=== PATIENT | female | born 1965 | race Caucasian/White ===

== ENCOUNTER 2016-12-15 23:56 | Emergency (ER) | payer MEDICARE, OTHER ==
[~2016-12-15] VITALS: Ht 167.6 cm; Wt 73.9 kg
--- NOTE | 2016-12-16 00:11 | PHYS DOC ---
Adult General Chief Complaint Chief Complaint: ABDOMINAL PAIN HPI HPI Patient is a 51 year old female who presents with abdominal pain. She states been on for last several days his epigastric region and now has radiated to the right upper quadrant. She denies any nausea or vomiting but states the pain gets so severe that she decided to come the emergency department. She has had her gallbladder removed in the past. She denies shortness of breath or chest pain. She does not have a family history of coronary disease and she's never had a heart attack or a stress test in the past. She states nothing makes the pain better or worse it comes on then resolves by itself. She denies any other abdominal surgeries other than her cholecystectomy. She states the pain is in her right upper and right lower quadrant currently. Review of Systems Review of Systems Constitutional: Denies fever or chills [] Eyes: Denies change in visual acuity, redness, or eye pain [] HENT: Denies nasal congestion or sore throat [] Respiratory: Denies cough or shortness of breath [] Cardiovascular: No additional information not addressed in HPI [] GI: Denies nausea, vomiting, bloody stools or diarrhea, positive for abdominal pain : Denies dysuria or hematuria [] Musculoskeletal: Denies back pain or joint pain [] Integument: Denies rash or skin lesions [] Neurologic: Denies headache, focal weakness or sensory changes [] Endocrine: Denies polyuria or polydipsia [] Current Medications Current Medications Current Medications Medications (Trade) Dose Ordered Sig/Charu Start Time Stop Time Status Last Admin Dose Admin Info (Do NOT chart on this entry -- for MONITORING) 1 each PRN DAILY PRN 12/16/16 03:30 12/18/16 03:29 Iohexol (Omnipaque 300 Mg/ml) 75 ml 1X ONCE 12/16/16 03:15 12/16/16 03:19 DC 12/16/16 03:20 75 ML Morphine Sulfate 2 mg PRN Q15MIN PRN 12/16/16 00:30 12/17/16 00:29 Allergies Allergies Allergies Uncoded Allergies Type Severity Reaction Last Updated Verified NSAIDS Adverse Reaction Unknown 12/16/16 Physical Exam Physical Exam Constitutional: Well developed, well nourished, no acute distress, non-toxic appearance. [] HENT: Normocephalic, atraumatic, bilateral external ears normal, oropharynx moist, no oral exudates, nose normal. [] Eyes: PERRLA, EOMI, conjunctiva normal, no discharge. [] Neck: Normal range of motion, no tenderness, supple, no stridor. [] Cardiovascular:Heart rate regular rhythm, no murmur [] Lungs & Thorax: Bilateral breath sounds clear to auscultation [] Abdomen: Bowel sounds normal, soft, tender to palpation the right upper and lower quadrant, no rebound or guarding no masses, no pulsatile masses. [] Skin: Warm, dry, no erythema, no rash. [] Back: No tenderness, no CVA tenderness. [] Extremities: No tenderness, no cyanosis, no clubbing, ROM intact, no edema. [] Neurologic: Alert and oriented X 3, normal motor function, normal sensory function, no focal deficits noted. [] Psychologic: Affect normal, judgement normal, mood normal. [] Current Patient Data Vital Signs Vital Signs Date Time Temp Pulse Resp B/P (MAP) Pulse Ox O2 Delivery O2 Flow Rate FiO2 12/15/16 23:57 97.2 79 17 166/93 (117) 97 Room Air 97.2 Lab Values Laboratory Tests Test 12/16/16 00:04 12/16/16 00:45 12/16/16 04:20 Urine Collection Type Unknown Urine Color Yellow Urine Clarity Clear Urine pH 5.5 Urine Specific [place] 1.010 Urine Protein Negative mg/dL (NEG-TRACE) Urine Glucose (UA) Negative mg/dL (NEG) Urine Ketones (Stick) Negative mg/dL (NEG) Urine Blood Negative (NEG) Urine Nitrite Positive (NEG) Urine Bilirubin Negative (NEG) Urine Urobilinogen Dipstick 0.2 mg/dL (0.2 mg/dL) Urine Leukocyte Esterase Small (NEG) Urine RBC Occ /HPF (0-2) Urine WBC 5-10 /HPF (0-4) Urine Squamous Epithelial Cells Occ /LPF Urine Bacteria Many /HPF (0-FEW) Urine Mucus Slight /LPF Urine Opiates Screen Neg (NEG) Urine Methadone Screen Neg (NEG) Urine Barbiturates Neg (NEG) Urine Phencyclidine Screen Neg (NEG) Urine Amphetamine/Methamphetamine Neg (NEG) Urine Benzodiazepines Screen Pos (NEG) Urine Cocaine Screen Neg (NEG) Urine Cannabinoids Screen Neg (NEG) Urine Ethyl Alcohol Pos (NEG) White Blood Count 4.6 x10^3/uL (4.0-11.0) Red Blood Count 3.83 x10^6/uL (3.50-5.40) Hemoglobin 11.7 g/dL (12.0-15.5) L Hematocrit 34.8 % (36.0-47.0) L Mean Corpuscular Volume 91 fL (79-100) Mean Corpuscular Hemoglobin 30 pg (25-35) Mean Corpuscular Hemoglobin Concent 34 g/dL (31-37) Red Cell Distribution Width 13.6 % (11.5-14.5) Platelet Count 144 x10^3/uL (140-400) Neutrophils (%) (Auto) 62 % (31-73) Lymphocytes (%) (Auto) 21 % (24-48) L Monocytes (%) (Auto) 11 % (0-9) H Eosinophils (%) (Auto) 6 % (0-3) H Basophils (%) (Auto) 0 % (0-3) Neutrophils # (Auto) 2.9 x10^3uL (1.8-7.7) Lymphocytes # (Auto) 0.9 x10^3/uL (1.0-4.8) L Monocytes # (Auto) 0.5 x10^3/uL (0.0-1.1) Eosinophils # (Auto) 0.3 x10^3/uL (0.0-0.7) Basophils # (Auto) 0.0 x10^3/uL (0.0-0.2) Prothrombin Time 13.9 SEC (11.7-14.0) Prothrombin Time INR 1.1 (0.8-1.1) Sodium Level 144 mmol/L (136-145) Potassium Level 3.9 mmol/L (3.5-5.1) Chloride Level 107 mmol/L (98-107) Carbon Dioxide Level 28 mmol/L (21-32) Anion Gap 9 (6-14) Blood Urea Nitrogen 10 mg/dL (7-20) Creatinine 0.5 mg/dL (0.6-1.0) L Estimated GFR (Cockcroft-Gault) 130.1 Glucose Level 95 mg/dL (70-99) Calcium Level 8.5 mg/dL (8.5-10.1) Magnesium Level 1.8 mg/dL (1.8-2.4) Total Bilirubin 0.4 mg/dL (0.2-1.0) Direct Bilirubin 0.1 mg/dL (0.0-0.2) Aspartate Amino Transferase (AST) 32 U/L (15-37) Alanine Aminotransferase (ALT) 43 U/L (14-59) Alkaline Phosphatase 145 U/L (46-116) H Creatine Kinase 34 U/L (26-192) 29 U/L (26-192) Creatine Kinase MB (Mass) 0.6 ng/mL (0.0-3.6) < 0.5 ng/mL (0.0-3.6) Creatine Kinase MB Relative Index 1.8 % (0-4) 1.7 % (0-4) Troponin I Quantitative < 0.017 ng/mL (0.000-0.055) < 0.017 ng/mL (0.000-0.055) SV-Waq-T-Type Natriuretic Peptide 132 pg/mL (0-124) H Total Protein 6.0 g/dL (6.4-8.2) L Albumin 3.2 g/dL (3.4-5.0) L Lipase 92 U/L (73-393) Thyroid Stimulating Hormone (TSH) 0.991 uIU/mL (0.358-3.74) Laboratory Tests 12/16/16 00:45 Laboratory Tests 12/16/16 00:45 EKG EKG EKG shows sinus rhythm [address] elevations or T-wave inversions, normal axis, QTC 420 ms, as interpreted by me. Radiology/Procedures Radiology/Procedures [facility] [address] [place] [address] IMAGING REPORT Signed PATIENT: ELPIDIO WANG ACCOUNT: [id number] : 1965 LOCATION: ER AGE: 51 SEX: F EXAM STATUS: REG ER ORD. PHYSICIAN: EDILBERTO SINGLETARY MD REASON: RUQ ABDOMEN pain PROCEDURE: CT ABD PELV W/ IV CONTRST ONLY CT scan of the abdomen and pelvis with contrast 12/16/2016 CLINICAL HISTORY: Right upper quadrant abdominal pain. TECHNIQUE: After the intravenous administration of 75 cc of Omnipaque 300, contiguous, 5 mm axial sections were obtained through the abdomen and pelvis. 75 cc of Omnipaque 300 were administered intravenously during this examination. One or more of the following individualized dose reduction techniques were utilized for this study: 1. Automated exposure control. 2. Adjustment of the mA and/or kV according to patient size. 3. Use of iterative reconstruction technique. FINDINGS: Images through the lung bases demonstrate minimal dependent subsegmental atelectasis bilaterally. The liver, pancreas, adrenal glands and kidneys are within normal limits. A 2.2 cm wedge-shaped area of decreased attenuation is seen involving the superior aspect of the spleen which likely represents an area of infarction. The spleen is mildly enlarged measuring 13 cm in length. Mild atherosclerotic calcification of the abdominal aorta is seen. The abdominal aorta tapers normally. Surgical changes are seen consistent with a gastric bypass procedure. Surgical clips are seen within the gallbladder fossa consistent with a cholecystectomy. No free fluid or free air is within the abdomen. There is no evidence of bowel obstruction. The appendix is not visualized. No inflammatory changes are seen surrounding the cecum. Images through the pelvis demonstrate the urinary bladder distended with urine. Calcifications are seen within the pelvis consistent with phleboliths. No free fluid is seen. Degenerative changes are seen involving the lower thoracic and mid and lower lumbar spine and both hips. Mild S-shaped curvature of the thoracolumbar spine is seen. IMPRESSION: No acute abnormality is seen. Electronically signed by: Ki Garvey MD (12/16/2016 3:55 AM) DICTATED and SIGNED BY: KI GARVEY MD DATE: 12/16/16 0350 CC: EDILBERTO SINGLETARY MD; NO PCP ~ Impressions: Abdominal pain Urinary tract infection Course & Med Decision Making Course & Med Decision Making Pertinent Labs and Imaging studies reviewed. (See chart for details) Labs do not show any acute abnormalities except for urinary tract infection, EKG and first and second troponins are also normal. CT abdomen and pelvis was within normal limits. We'll discharge with Cipro 500 mg twice a day for 3 days Welcome1 Patient's pain has resolved. She's being discharged home to follow-up with primary care physician and her GI doctor. Return precautions given, patient and boyfriend's agreeable to the plan and being discharged in stable condition this time. Dragon Disclaimer Dragon Disclaimer This electronic medical record was generated, in whole or in part, using a voice recognition dictation system. Departure Departure Impression: Primary Impression: Abdominal pain Disposition: 01 HOME, SELF-CARE Condition: STABLE Patient Instructions: Abdominal Pain, Urinary Tract Infection Additional Instructions: Your labs and addition the CAT scan of her abdomen pelvis did not show any acute abnormalities. Your pain has improved. There is a lot of different things it can be causing your pain, I suggested this time trying Pepcid or Zantac they can purchase [id number] to see if could be her stomach. If your pain gets severe, you have troubles breathing, or other concerns, return back to ER. You should follow-up with primary care physician within the next few days. Scripts Ciprofloxacin Hcl (CIPRO) 500 Mg Tablet 1 TAB PO BID for 3 Days, #6 TAB Prov: EDILBERTO SINGLETARY MD 12/16/16 Problem Qualifiers Primary Impression: Abdominal pain Abdominal location: right lower quadrant Qualified Codes: R10.31 - Right lower quadrant pain EDILBERTO SINGLETARY MD Dec 16, 2016 00:11
[2016-12-16] MEDS ORDERED: MORPHINE SULFATE 2 MG/ML DISP.SYRIN. IV/SQ PRN (00:30)
[2016-12-16 00:36] LABS: BILIRUBIN,URINE NEGATIVE (NEG); GLUCOSE,URINE NEGATIVE (NEG); NITRITE,URINE POSITIVE (NEG); PH,URINE 5.5; PROTEIN,URINE NEGATIVE (NEG-TRACE); UROBILINOGEN,URINE 0.2 mg/dL (0.2 mg/dL)
[2016-12-16 00:42] LABS: BARBITURATES NEG (NEG); BENZODIAZEPINES POS (NEG); CANNABINOIDS NEG (NEG); COCAINE NEG (NEG); METHADONE NEG (NEG); OPIATES NEG (NEG); PHENCYCLIDINE NEG (NEG)
[2016-12-16 00:51] LABS: BACTERIA,URINE MANY /HPF (0-FEW); RBC,URINE OCC /HPF (0-2); SQUAMOUS EPITHELIAL CELL,UR OCC /LPF
[2016-12-16 00:53] LABS: BASO % 0 % (0-3); EOS % 6 % (0-3); HEMATOCRIT 34.8 % (36.0-47.0); HEMOGLOBIN 11.7 g/dL (12.0-15.5); LYMPH # 0.9 x10^3/uL (1.0-4.8); LYMPH % 21 % (24-48); MEAN CORPUSCULAR HEMOGLOBIN 30 pg (25-35); MEAN CORPUSCULAR HGB CONC 34 g/dL (31-37); MEAN CORPUSCULAR VOLUME 91 fL (79-100); MONO % 11 % (0-9); NEUT % 62 % (31-73); PLATELET COUNT 144 x10^3/uL (140-400); RED BLOOD COUNT 3.83 x10^6/uL (3.50-5.40); RED CELL DISTRIBUTION WIDTH 13.6 % (11.5-14.5); WHITE BLOOD COUNT 4.6 x10^3/uL (4.0-11.0)
[2016-12-16 01:04] LABS: INR 1.1 (0.8-1.1); PROTHROMBIN TIME PATIENT 13.9 SEC (11.7-14.0)
[2016-12-16 01:05] LABS: CALCIUM 8.5 mg/dL (8.5-10.1); CREATININE 0.5 mg/dL (0.6-1.0); GFR 130.1; POTASSIUM 3.9 mmol/L (3.5-5.1)
[2016-12-16 01:11] LABS: ALBUMIN 3.2 g/dL (3.4-5.0); DIRECT BILIRUBIN 0.1 mg/dL (0.0-0.2); MAGNESIUM 1.8 mg/dL (1.8-2.4); TOTAL BILIRUBIN 0.4 mg/dL (0.2-1.0)
[2016-12-16 01:21] LABS: CKMB MASS 0.6 ng/mL (0.0-3.6)
[2016-12-16] MEDS: IOHEXOL 300 MG/ML 75 ML VIAL IV ONE (03:20)
[2016-12-16] MEDS ORDERED: CONTRAST GIVEN MC PRN (03:30)
--- NOTE | 2016-12-16 03:59 | RAD ---
CT scan of the abdomen and pelvis with contrast 12/16/2016 CLINICAL HISTORY: Right upper quadrant abdominal pain. TECHNIQUE: After the intravenous administration of 75 cc of Omnipaque 300, contiguous, 5 mm axial sections were obtained through the abdomen and pelvis. 75 cc of Omnipaque 300 were administered intravenously during this examination. One or more of the following individualized dose reduction techniques were utilized for this study: 1. Automated exposure control. 2. Adjustment of the mA and/or kV according to patient size. 3. Use of iterative reconstruction technique. FINDINGS: Images through the lung bases demonstrate minimal dependent subsegmental atelectasis bilaterally. The liver, pancreas, adrenal glands and kidneys are within normal limits. A 2.2 cm wedge-shaped area of decreased attenuation is seen involving the superior aspect of the spleen which likely represents an area of infarction. The spleen is mildly enlarged measuring 13 cm in length. Mild atherosclerotic calcification of the abdominal aorta is seen. The abdominal aorta tapers normally. Surgical changes are seen consistent with a gastric bypass procedure. Surgical clips are seen within the gallbladder fossa consistent with a cholecystectomy. No free fluid or free air is within the abdomen. There is no evidence of bowel obstruction. The appendix is not visualized. No inflammatory changes are seen surrounding the cecum. Images through the pelvis demonstrate the urinary bladder distended with urine. Calcifications are seen within the pelvis consistent with phleboliths. No free fluid is seen. Degenerative changes are seen involving the lower thoracic and mid and lower lumbar spine and both hips. Mild S-shaped curvature of the thoracolumbar spine is seen. IMPRESSION: No acute abnormality is seen. Electronically signed by: Ki Malone MD (12/16/2016 3:55 AM)
[2016-12-16 04:30] VITALS: BP 148/90
[2016-12-16] MEDS ORDERED: CIPR500T94 PO (04:55)
[2016-12-16 05:00] LABS: CREATINE KINASE 29 U/L (26-192)
[2016-12-16 05:01] LABS: CKMB MASS < 0.5 ng/mL (0.0-3.6)
--- NOTE | 2016-12-16 07:11 | EKG ---
[facility] [address] [place] [address] Test Date: 2016-12-16 Test Time: 00:15:05 Pat Name: ELPIDIO WANG Department: Room: Gender: F [employer]: : 1965 Requested By: EDILBERTO SINGLETARY Order Number: [id number] Reading MD: Measurements Intervals [place] Rate: 77 P: 38 NC: 164 QRS: 30 QRSD: 84 T: 43 QT: 370 QTc: 420 Interpretive Statements SINUS RHYTHM QRS(T) CONTOUR ABNORMALITY CONSIDER ANTEROSEPTAL MYOCARDIAL DAMAGE POSSIBLY ABNORMAL ECG RI6.01 No previous ECG available for comparison
--- NOTE | 2016-12-16 07:35 | RAD ---
Indication right upper quadrant pain. A single view of the chest was obtained. No prior imaging of the chest is available. Heart size is at the upper limits of normal. There is no congestive heart failure focal infiltrate significant pleural fluid collection or pneumothorax. Scoliosis is noted. IMPRESSION: No acute or focal process is seen in the chest
== END 2016-12-16 04:45 | disposition home or self-care (01) ==
LOC: ER 23:56
DX: R10.31 Right lower quadrant pain (principal); R10.11 Right upper quadrant pain; Z88.6 Allergy status to analgesic agent; Z90.49 Acquired absence of other specified parts of digestive tract
CPT/HCPCS: 36415; 71010; 74177; 80048; 80076; 80305; 80320; 81001; 82553; 83690; 83735; 83880; 84443; 84484; 85027; 85610; 87086; 93005; 99285; Q9967; G0481